=== PATIENT | male | born 1950 | race Caucasian/White ===

== ENCOUNTER 2016-10-26 06:16 | Day surgery (SDC) | payer OTHER, MEDICARE ==
--- NOTE | 2016-10-24 13:02 | DIAGNOSTIC IMAGING REPORT ---
TWO VIEW CHEST CLINICAL HISTORY: Preoperative examination. FINDINGS: PA and lateral chest radiographs are compared to study dated 07/07/14. The cardiomediastinal silhouette is unremarkable. There is mild atherosclerotic calcification of the thoracic aorta. Dependent atelectasis is observed. The lungs and pleural spaces are otherwise clear. There is no pneumothorax. The bony thorax appears intact. Degenerative change and scoliosis are noted in the thoracic spine. IMPRESSION: No active disease in the chest. Electronically signed by: Izaiah Gomez M.D. 10/24/2016 1:01 PM Dictated Date/Time: 10/24/2016 1:00 PM
[2016-10-24 13:10] LABS: BASO % 0.5 %; BASO ABS # 0.02 K/uL (0-0.2); COMPLETE YES; EOS % 1.8 %; HEMATOCRIT 40.8 % (42-52); IG% 0.5 %; LYMPH % 28.1 %; LYMPH ABS # 1.22 K/uL (1.2-3.4); MEAN CELL VOLUME 91.7 fL (80-100); MEAN CORPUSCULAR HEMOGLOBIN 32.6 pg (25-34); MEAN CORPUSCULAR HGB CONC 35.5 g/dl (32-36); MEAN PLATELET VOLUME 9.6 fL (7.4-10.4); NEUT % 57.1 %; PLATELET COUNT 252 K/uL (130-400); RED BLOOD COUNT 4.45 M/uL (4.7-6.1); WHITE BLOOD COUNT 4.34 K/uL (4.8-10.8)
[2016-10-24 13:45] LABS: CALCIUM 9.5 mg/dl (8.5-10.1)
[2016-10-24 13:46] LABS: BLOOD UREA NITROGEN 16 mg/dl (7-18); BUN/CREATININE RATIO 12.4 (10-20); CARBON DIOXIDE 23 mmol/L (21-32); CHLORIDE 106 mmol/L (98-107); GLUCOSE 88 mg/dl (70-99); SODIUM 138 mmol/L (136-145)
--- NOTE | 2016-10-25 14:15 | HISTORY & PHYSICAL EXAMINATION ---
DATE OF ADMISSION: 10/26/2016 HISTORY AND PHYSICAL ADMISSION NOTE CHIEF COMPLAINT: Large left rotator cuff tear. HISTORY OF PRESENT ILLNESS: Niels is a pleasant 66-year-old male who injured his left shoulder back in June. Clinical examination and MRI were been diagnostic for a large left rotator cuff tear. He has failed conservative treatment and has elected to undergo an arthroscopic rotator cuff repair. He understands the risks, benefits, alternatives to procedure and he has elected to proceed. PAST MEDICAL HISTORY: Significant for hypertension and hyperlipidemia and GERD. 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 ALLERGIES: None. MEDICATIONS: Include Norvasc 5 mg daily, Lipitor 20 mg daily, Celebrex 200 mg daily, Catapres 0.1 mg daily, and Ambien 10 mg daily. FAMILY HISTORY: Noncontributory. SOCIAL HISTORY: He is an active male. He has about 10 drinks a week. He denies any tobacco use. REVIEW OF SYSTEMS: He complains of left shoulder pain and weakness. All other pertinent review of systems is negative. PHYSICAL EXAMINATION: GENERAL: He is awake, alert and oriented x3. He is in no apparent distress. He is very pleasant. HEENT: Pupils equal, round and reactive to light. Extraocular motion intact. Oral mucosa is pink and moist. HEART: Regular rate per radial pulse. LUNGS: Jayda symmetrically bilaterally with no audible breath sounds. ABDOMEN: Soft, nontender, nondistended. MUSCULOSKELETAL: On physical examination of his left shoulder, he has limited range of motion about 90 degrees of forward elevation, 90 degrees of abduction and he has 3/5 muscle strength with full can testing and 4/5 strength with external rotation. Negative belly press test. Positive bear hug test to pain. IMAGING: MRI of the left shoulder shows a medium to large sized rotator cuff tear of the left shoulder, there is retraction to the mid humeral head. I do not see any significant atrophy of the muscle bellies. IMPRESSION: Medium to large left rotator cuff tear. PLAN: Will proceed with an arthroscopic rotator cuff repair. Postoperatively, he will be placed in an arm sling and discharged to home on oral pain medications. CAMPBELL
[~2016-10-26] VITALS: Ht 175.3 cm; Wt 108.0 kg
[~2016-10-26 06:16] MED LIST: ACETAMINOPHEN 500 MG TAB PO SCH; ASPEC325 PO; CEFAZOLIN 2000 MG/60 ML D5W 60 ML IV SCH; CLB/200 PO; COQ PO; CTP1X PO; FAMOTIDINE 20 MG TAB PO SCH; FRRG PO; GABAPENTIN 300 MG CAP PO SCH; IBUP1TAB PO; LACTATED RINGER'S 1000ML 1,000 ML IV SCH; LACTATED RINGER'S 1000ML IV SCH; MELA1TAB22 PO; MULT-188 PO; NRV/5 PO; PATIENT'S HEIGHT AND/OR WEIGHT NEEDED SCH
[2016-10-26] MEDS ORDERED: COEN75CA PO (06:39)
[2016-10-26] MEDS ORDERED: IBUP-103 PO (06:40)
[2016-10-26] MEDS ORDERED: tumeric PO (06:40)
[2016-10-26 06:41] VITALS: BP 166/89; PULSE 85; TEMP 36.9; O2SAT 96; Ht 175.3 cm; Wt 108.0 kg
--- NOTE | 2016-10-26 06:45 | History & Physical Bridge Note ---
H&P Re-Evaluation Bridge Note: I have examined the patient, reviewed the History & Physical and in the interval since the performance of the History & Physical I have noted the following changes of clinical significance: No changes noted
[2016-10-26 06:54] LABS: PARTIAL THROMBOPLASTIN RATIO 1.1; PROTHROMBIN TIME (PATIENT) 10.6 SECONDS (9.0-12.0)
[2016-10-26] MEDS ORDERED: BUPIVACAINE 0.5 % 5 MG/1 ML PF 10ML VIAL ONE (07:31)
[2016-10-26] MEDS ORDERED: CLONIDINE HCL 100 MCG/ML SYRINGE ONE (07:31)
[2016-10-26] MEDS ORDERED: MEPIVACAINE HCL 1.5% 30 ML VIAL ONE (07:31)
[2016-10-26] MEDS ORDERED: MIDAZOLAM HCL 1 MG/ML 2ML VIAL ONE (07:57)
[2016-10-26] MEDS ORDERED: FENTANYL CITRATE INJ 50 MCG/1 ML 2 ML VIAL ONE (07:57)
[2016-10-26] MEDS ORDERED: EpINEphrine HCL INJ 1 MG/ML 5ML SYRINGE ONE (08:25)
[2016-10-26] MEDS ORDERED: BUPIVACAINE/EPINEPHRINE 0.5% MPF 1:200,000 30 ML VIAL ONE (08:25)
[2016-10-26] MEDS ORDERED: EpHEDrine SULFATE 50MG/5ML SYR ONE (09:23)
[2016-10-26] MEDS ORDERED: PHENYLEPHRINE 100MCG/ML 5ML SYR ONE (09:23)
[2016-10-26] MEDS ORDERED: PROPOFOL IV EMULSION 10 MG/ML 20 ML VIAL IV ONE (09:26)
[2016-10-26] MEDS ORDERED: SUCCINYLCHOLINE CHLORIDE 20 MG/ML 10 ML VIAL IV ONE (09:26)
[2016-10-26] MEDS ORDERED: DEXAMETHASONE SOD INJ 4 MG/ML VIAL ONE (09:26)
[2016-10-26] MEDS ORDERED: ONDANSETRON INJ 2 MG/ML 2 ML VIAL ONE (09:26)
[2016-10-26] MEDS ORDERED: LIDOCAINE HCL 2% 2 ML VIAL (20MG/ML) ONE (09:26)
[2016-10-26] MEDS ORDERED: KETOROLAC TROMETHAMINE 30 MG/ML VIAL ONE (10:07)
--- NOTE | 2016-10-26 10:25 | [facility] Post Operative Brief Note ---
Immediate Operative Summary Operative Date Oct 26, 2016. Pre-Operative Diagnosis Large left shoulder rotator cuff tear Post-Operative Diagnosis Same as preop Procedure(s) Performed Left Shoulder Arthroscopy Large Rotator Cuff Repair Surgeon Dr. Pompa Software Validation Engineer Surgeon(s) Surinder Altman PA-C Estimated Blood Loss 5cc Findings as above Specimens None per Surgeon Complication(s) None Disposition Recovery Room / PACU
[2016-10-26] MEDS ORDERED: KETO10TA PO (10:33)
[2016-10-26] MEDS ORDERED: OXYC-57 PO (10:33)
[2016-10-26] MEDS ORDERED: SODIUM CHLORIDE 0.9% 1000ML 1,000 ML IV SCH (10:35)
--- NOTE | 2016-10-26 10:35 | Discharge Instructions ---
Discharge Instructions Date of Service Oct 26, 2016. Admission Reason for Admission: Lt Shouldr Full Thicknes Rotator Cuff Tear M25.512 Discharge Discharge Diagnosis / Problem: SAME ABOVE Discharge Goals Goal(s): Decrease discomfort, Improve function Activity Recommendations Activity Limitations: as noted below Lifting Limitations: until after follow-up appointment Exercise/Sports Limitations: until after follow-up appointment Driving or Machine Use: NO DRIVING UNTIL FOLLOW-UP . Instructions / Follow-Up Instructions / Follow-Up MEDICATIONS: * Resume previous medications unless instructed otherwise by your surgeon. * Always take pain medication on a full stomach or with food to avoid upset stomach. * Do not drink alcohol or drive while taking narcotics. * Ibuprofen or Tylenol may be taken if narcotic not needed. SPECIAL CARE INSTRUCTIONS: __ None _X_ Keep extremity elevated and iced x 48 hours; apply ice 20-30 minutes 8-10 times/day. May remove at night. __ Sling __24 hrs/day __ Remove at night _X_ Shoulder Immobilizer (MAY REMOVE AFTER 48 HOURS ONLY TO SHOWER AND FOR THERAPY) X_ 24 hrs/day __ Remove at night _X_ Dressing __ Maintain until seen in office, may shower with plastic over site _X_ Remove dressings in 24-48 hours and then may shower _X_ Cover incisions with band-aids after showering __ Do not remove steri-strips Call physician if chills or temperature rises above 102 degrees or pain unrelieved by prescribed pain medications at . . Current Hospital Diet Patient's current hospital diet: Discharge Diet Recommended Diet: Regular Diet Fluid Restriction: None Procedures Procedures Performed: Left Shoulder Arthroscopy Large Rotator Cuff Repair Pending Studies Studies pending at discharge: no Work Instructions Return To Work: after follow-up Lifting Limitations: NO LIFTING WITH LEFT ARM Medical Emergencies . Who to Call and When: Medical Emergencies: If at any time you feel your situation is an emergency, please call 911 immediately. . Non-Emergent Contact Non-Emergency issues call your: Primary Care Provider Call Non-Emergent contact if: you have a fever, temperature is above 101.5 . "Provider Documentation" section prepared by Yury Altman. . VTE Core Measure Inpt VTE Proph given/why not?: Treatment not indicated
[2016-10-26] MEDS ORDERED: ONDANSETRON INJ 2 MG/ML 2 ML VIAL IV PRN (10:45)
[2016-10-26] MEDS ORDERED: OXYCODONE/ACETAMINOPHEN 5-325 TAB PO PRN ×2 (10:45)
--- NOTE | 2016-10-26 10:57 | Anesthesiology Progress Note ---
Anesthesia Post Op Note Date & Time Oct 26, 2016 at 10:57 Vital Signs Pain Intensity: 1 Vital Signs Past 12 Hours Date Time Temp Pulse Resp B/P (MAP) Pulse Ox O2 Delivery O2 Flow Rate FiO2 10/26/16 10:54 36.8 10/26/16 10:52 134/91 10/26/16 10:51 84 22 92 10/26/16 10:51 84 22 10/26/16 10:47 141/92 10/26/16 10:46 76 19 10/26/16 10:46 75 19 96 10/26/16 10:42 158/85 10/26/16 10:41 75 18 10/26/16 10:41 75 18 97 10/26/16 10:38 141/88 10/26/16 10:26 36.1 80 14 136/84 96 Mask 10 10/26/16 06:41 36.9 85 16 166/89 (114) 96 Room Air Notes Mental Status: alert / awake / arousable, participated in evaluation Pt Amnestic to Procedure: Yes Nausea / Vomiting: adequately controlled Pain: adequately controlled Airway Patency, RR, SpO2: stable & adequate BP & HR: stable & adequate Hydration State: stable & adequate Anesthetic Complications: no major complications apparent
[2016-10-26] MEDS ORDERED: ATROPINE SULFATE 0.1 MG/ML 5ML SYR IV PRN (11:00)
[2016-10-26] MEDS ORDERED: EpHEDrine SULFATE INJ 50 MG/ML AMP IV PRN (11:00)
[2016-10-26 11:12] VITALS: BP 119/81; PULSE 78; TEMP 36.5; O2SAT 93
[2016-10-26 11:45] VITALS: BP 143/80; PULSE 80; O2SAT 94
[2016-10-26 12:15] VITALS: BP 154/67; PULSE 84; TEMP 36.5; O2SAT 94
--- NOTE | 2016-10-26 14:18 | OPERATIVE REPORT ---
DATE OF OPERATION: 10/26/2016 PREOPERATIVE DIAGNOSIS: Large left rotator cuff tear. POSTOPERATIVE DIAGNOSIS: Same. PROCEDURE: Left shoulder diagnostic arthroscopy with extensive debridement, distal clavicle resection to include co-planing the undersurface of the clavicle, acromioplasty, large rotator cuff repair and arthroscopic biceps tenodesis. SURGEON: Dr. Mick Pompa. RN SURGERY ICU: Surinder Altman PA-C, whose assistance was necessary for positioning the arm and helping with instrumentation. ANESTHESIA: General with a left interscalene nerve block. COMPLICATIONS: None. CONDITION: Stable to PACU. INDICATIONS: Niels is a pleasant 66-year-old male who injured his shoulder putting firewood into his furnace back in June. He has been having shoulder pain since. MRI and clinical examination were diagnostic for a large left rotator cuff tear. After failing conservative treatment, he elected to undergo arthroscopy. DESCRIPTION OF PROCEDURE: On 10/26/2016, he arrived at [facility] for the above procedure. He was seen in the preoperative holding area and the operative extremity was identified and signed. He was given a preoperative antibiotic and a left interscalene nerve block. He was taken back to the operating room, laid on the table in supine position and put under general anesthesia. He was then put into the beachchair position. The left shoulder was prepped and draped in a sterile fashion. Time-out was done and the patient and operative extremity was properly identified. A scope was introduced in the posterior portal. Diagnostic arthroscopy showed no cartilage damage to the humeral head. There was some grade 4 chondral changes in the anterior inferior glenoid. There was significant fraying of the anterior labrum. The biceps tendon was slightly frayed. There was a tear of the entire supraspinatus and superior half of the infraspinatus. The remainder of the infraspinatus and teres minor and subscapularis were checked and intact. An anterior portal was made. A shaver was used to do a debridement of some of the intra-articular structures as well as a slight chondroplasty of the glenoid. The scope was then put into the subacromial space. A lateral portal was made. A shaver was used to do an extensive debridement including complete subacromial and subdeltoid bursectomy. An ablator was used to tease the coracoacromial ligament off the undersurface of the acromion and a 5-0 katerin was used to complete an acromioplasty of a Bigliani type 3 acromion. A shaver was used to remove any excess debris. Attention was turned to the distal clavicle, there was a large inferior osteophyte hanging on the undersurface of the clavicle. A bur was used to co-plane the undersurface of the clavicle to open up the supraspinatus outlet. Attention was then turned to the rotator cuff. An additional anterolateral portal was made and Cinthia cannulas were placed in each of the lateral portals. It was a very large crescent-shaped tear. The greater tuberosity was prepared with a ring curette and a microfracture. The rotator cuff was then fixed with an Arthrex suspension bridge configuration with using BioComposite SwiveLock suture anchors and FiberTape. This gave a nice transosseous equivalent repair. Multiple pictures were taken. The biceps tendon was tagged with a fiber link suture and incorporated with the anterior lateral SwiveLock anchor. This completed the arthroscopic biceps tenodesis. The scope was placed back into the glenohumeral joint and the articular margin of the rotator cuff had been restored. The biceps tendon was arthroscopically tenotomized. Arthroscopic instruments were removed from the shoulder. Portal sites were closed with 3-0 nylon. He was then placed in a soft dressing and abduction arm sling. He was then extubated, transferred to a litter and taken to the postanesthesia care unit in stable condition. He tolerated the procedure well. I attest to the content of the Intraoperative Record and any orders documented therein. Any exception s are noted below.
== END 2016-10-26 12:20 | disposition home or self-care (01) ==
LOC: C.ACU 06:16
PROVIDERS: ATTEND Orthopaedic Surgery
DX: M75.102 Unspecified rotator cuff tear or rupture of left shoulder, not specified as traumatic (principal); E78.5 Hyperlipidemia, unspecified; I10 Essential (primary) hypertension; K21.9 Gastro-esophageal reflux disease without esophagitis; Z96.653 Presence of artificial knee joint, bilateral